=== PATIENT | female | born 1985 | race Caucasian/White ===

== ENCOUNTER 2020-06-09 10:28 | Outpatient (CLI) | payer MEDICARE, OTHER ==
[2020-06-09 15:38] VITALS: BP 123/75; PULSE 79; RESP 18; TEMP 98.2
--- NOTE | 2020-06-09 17:05 | P.MSEPDOC ---
Presenting Problems - Arrival Data Date of Arrival on Unit: 06/09/20 Time of Arrival on Unit: 10:35 Mode of Transport: Wheelchair - Complaint OB-Reason for Admission/Chief Complaint: Headache, Elevated Blood Pressure Comment: pt here complaining of elevated b/p and headache since this am. has a hx of a. brain anuerysm and polysistic kidney disease, sees a high risk doctor at [facility], planning a c/s on 06/20/20 Medical History - Information : 4 Para: 3 Number of Living Children: 3 - Gestational Age Gestational Age by KENDAL (wks/days): 35 Weeks and 3 Days Review of Systems - Review of Systems Constitutional: No problems Breast: No problems ENT: No problems Cardiovascular: No problems Respiratory: No problems Gastrointestinal: No problems Genitourinary: No problems Musculoskeletal: No problems Neurological: No problems Skin: No problems Vital Signs - Temperature Temperature: 98.2 F Temperature Source: Oral - Pulse Pulse Oximetery Pulse Rate: 79 Pulse Assessment Method: Pulse Oximetry - Respirations Respiratory Rate: 18 Oxygen Delivery Method: Room Air O2 Sat by Pulse Oximetry: 99 - Blood Pressure Right Arm Blood Pressure: 123/75 Blood Pressure Mean: 91 Blood Pressure Source: Automatic Cuff Medical Screen Scoring (Pre) - Cervical Exam Dilation: 0 cm = 0 Membranes: Intact - Uterine Contractions Frequency: N/A - Maternal Vital Signs Maternal Temperature: N/A Maternal Blood Pressure: N/A Signs of Preeclampsia: N/A Maternal Respirations: N/A - Maternal Trauma Maternal Trauma: N/A - Assessment - Baby A Baseline FHR: 130 Heart Rate - NICHD Category: Category I (Normal) = 0 NST: Reactive - Total Score - Baby A Total Score - Baby A: 0 - Total Score - Baby B Total Score - Baby B: 0 - Total Score - Baby C Total Score - Baby C: 0 - Level of Risk - Baby A Level of Risk - Baby A: Low (0-5) - Level of Risk - Baby B Level of Risk - Baby B: Low (0-5) - Level of Risk - Baby C Level of Risk - Baby C: Low (0-5) Physician Notification (Pre) - Physician Notified Physician Notified Date: 06/09/20 Physician Notified Time: 11:15 New Order Received: Yes Disposition - Disposition OB Disposition: Discharge to home, Written follow up instructions reviewed Discharge Date: 06/09/20 Discharge Time: 11:35 I agree with the RN Medical Screening Exam: Yes Case reviewed; plan agreed upon as documented in EMR&OBIX.: Yes Diagnosis: HEADACHE, UNSPECIFIED
== END 2020-06-09 11:35 | disposition home or self-care (01) ==
LOC: FBPOP 10:28
PROVIDERS: ATTEND Obstetrics & Gynecology
DX: O26.893 Other specified pregnancy related conditions, third trimester (principal); R51.9 Headache, unspecified; Z3A.35 35 weeks gestation of pregnancy
CPT/HCPCS: 59025; G0463; 99215

== ENCOUNTER 2022-01-17 15:13 | Observation (INO) | payer MEDICARE, OTHER ==
[2022-01-17] MEDS ORDERED: PANTOPRAZOLE 40 MG/10 ML VIAL IVP STA (16:04)
[2022-01-17 16:30] LABS: HCT 35.3 % (34.0-46.0); HGB 11.3 gm/dL (11.4-16.0); MCH 25.1 pg (25.0-35.0); MCHC 32.1 g/dL (31.0-37.0); MCV 78.2 fL (80.0-100.0); Mean Platelet Volume 7.8; Platelet Count 251 k/uL (150-450); RBC 4.51 m/uL (3.80-5.40); RDW 16.1 % (11.5-15.5); WBC 9.9 k/uL (3.8-10.6)
[2022-01-17 16:31] LABS: Anisocytosis Slight; Basophils % (A) 0 %; Eosinophils # (A) 0.3 k/uL (0-0.7); Eosinophils % (A) 3 %; Hypochromasia Moderate; Lymphocytes # (A) 1.9 k/uL (1.0-4.8); Lymphocytes % (A) 19 %; Microcytosis Slight; Monocytes # (A) 0.5 k/uL (0-1.0); Monocytes % (A) 5 %; Neutrophils % (A) 71 %
[2022-01-17 16:44] LABS: Albumin 4.4 g/dL (3.5-5.0); Calcium 8.9 mg/dL (8.4-10.2); Total Bilirubin 0.2 mg/dL (0.2-1.3); Total Protein 6.9 g/dL (6.3-8.2)
[2022-01-17 17:01] LABS: INR 0.9 (<1.2); Partial Thromboplastin Time 23.2 sec (22.0-30.0); Prothrombin Time 9.9 sec (9.0-12.0)
[2022-01-17 17:04] LABS: Potassium 4.2 mmol/L (3.5-5.1)
--- NOTE | 2022-01-17 19:56 | ED ---
GI Bleed HPI - General Chief complaint: GI Bleed Stated complaint: Abd pain Time Seen by Provider: 01/17/22 15:42 Source: patient Mode of arrival: ambulatory Limitations: no limitations - History of Present Illness Initial comments: This patient is a 36-year-old woman who presents with complaint that she has passed some bright red material bowel movements going back to Friday morning. She states she has had a total of of these bowel movements. The patient does bring pictures of one of these bowel movements. She states that there is no abdominal pain, but she does get little bit of intermittent abdominal cramping. No perianal pain . She has not noted symptoms of anemia. No chest pain, dyspnea, palpitations, lightheadedness or syncope area MD complaint: gross hematochezia Onset/Timin -: days(s) Quality: painless Consistency: intermittent Improves with: none Worsens with: none Associated Symptoms: denies other symptoms - Related Data Home Medications Medication Instructions Recorded Confirmed Dextroamphetamine/Amphetamine 20 mg PO TID 01/17/22 01/17/22 [Adderall 20 mg Tablet] lisinopriL [Zestril] 20 mg PO DAILY 01/17/22 01/17/22 Previous Rx's Medication Instructions Recorded Acetaminophen Tab [Tylenol] 650 mg PO Q6HR PRN tab 01/18/22 Allergies Allergy/AdvReac Type Severity Reaction Status Date / Time No Known Allergies Allergy Verified 01/17/22 20:18 Review of Systems ROS Statement: Those systems with pertinent positive or pertinent negative responses have been documented in the HPI. ROS Other: All systems not noted in ROS Statement are negative. Constitutional: Denies: fever, chills, weakness Respiratory: Denies: cough, dyspnea Cardiovascular: Denies: chest pain, palpitations, edema Gastrointestinal: Reports: hematochezia. Denies: abdominal pain, nausea, vomiting, diarrhea, constipation, melena Genitourinary: Denies: dysuria, hematuria Musculoskeletal: Denies: back pain Skin: Denies: rash Neurological: Denies: headache, weakness Past Medical History Additional Past Medical History / Comment(s): polysystic kidney brain aneursym History of Any Multi-Drug Resistant Organisms: None Reported Past Surgical History: Section Additional Past Surgical History / Comment(s): aneursym stent and coil. Past Psychological History: No Psychological Hx Reported Smoking Status: Former smoker - Past Family History Father Family Medical History: Hypertension General Exam Limitations: no limitations General appearance: alert, in no apparent distress Head exam: Present: atraumatic, normocephalic Eye exam: Present: normal appearance. Absent: scleral icterus, conjunctival injection Neck exam: Present: normal inspection Respiratory exam: Present: normal lung sounds bilaterally. Absent: respiratory distress, wheezes, rales, rhonchi, stridor Cardiovascular Exam: Present: regular rate, normal rhythm, normal heart sounds. Absent: systolic murmur, diastolic murmur, rubs, gallop GI/Abdominal exam: Present: soft. Absent: distended, tenderness, guarding, rebound, rigid, mass Rectal exam: Present: normal inspection, heme (+) stool, tenderness. Absent: hemorrhoids, mass Extremities exam: Present: normal inspection, normal capillary refill. Absent: pedal edema, calf tenderness Back exam: Present: normal inspection Neurological exam: Present: alert Skin exam: Present: warm, dry, intact, normal color. Absent: rash Course Vital Signs 01/17/22 01/17/22 15:21 21:31 Temperature 98.1 F Pulse Rate 86 74 Respiratory 16 16 Rate Blood Pressure 133/83 119/81 O2 Sat by Pulse 100 100 Oximetry Medical Decision Making - Lab Data Result diagrams: 01/18/22 05:13 01/18/22 05:13 Lab Results 01/17/22 01/17/22 01/17/22 Range/Units 16:15 16:19 16:19 WBC 9.9 (3.8-10.6) k/uL RBC 4.51 (3.80-5.40) m/uL Hgb 11.3 L (11.4-16.0) gm/dL Hct 35.3 (34.0-46.0) % MCV 78.2 L (80.0-100.0) fL MCH 25.1 (25.0-35.0) pg MCHC 32.1 (31.0-37.0) g/dL RDW 16.1 H (11.5-15.5) % Plt Count 251 (150-450) k/uL MPV 7.8 Neutrophils % 71 % Lymphocytes % 19 % Monocytes % 5 % Eosinophils % 3 % Basophils % 0 % Neutrophils # 7.0 (1.3-7.7) k/uL Lymphocytes # 1.9 (1.0-4.8) k/uL Monocytes # 0.5 (0-1.0) k/uL Eosinophils # 0.3 (0-0.7) k/uL Basophils # 0.0 (0-0.2) k/uL Hypochromasia Moderate Anisocytosis Slight Microcytosis Slight PT 9.9 (9.0-12.0) sec INR 0.9 (<1.2) APTT 23.2 (22.0-30.0) sec Sodium (137-145) mmol/L Potassium (3.5-5.1) mmol/L Chloride (98-107) mmol/L Carbon Dioxide (22-30) mmol/L Anion Gap mmol/L BUN (7-17) mg/dL Creatinine (0.52-1.04) mg/dL Est GFR (CKD-EPI)AfAm (>60 ml/min/1.73 sqM) Est GFR (CKD-EPI)NonAf (>60 ml/min/1.73 sqM) Glucose (74-99) mg/dL Plasma Lactic Acid Checo (0.7-2.0) mmol/L Calcium (8.4-10.2) mg/dL Total Bilirubin (0.2-1.3) mg/dL AST (14-36) U/L ALT (4-34) U/L Alkaline Phosphatase (38-126) U/L Troponin I (0.000-0.034) ng/mL Total Protein (6.3-8.2) g/dL Albumin (3.5-5.0) g/dL Stool Occult Blood (Negative) Blood Type B Positive Blood Type Confirm Blood Type Recheck No Previous Record Bld Type Recheck Status CABO Indicated Antibody Screen NEGATIVE Spec Expiration Date 01/20/2022 - 231401/17/22 01/17/22 01/17/22 Range/Units 16:19 16:19 16:19 WBC (3.8-10.6) k/uL RBC (3.80-5.40) m/uL Hgb (11.4-16.0) gm/dL Hct (34.0-46.0) % MCV (80.0-100.0) fL MCH (25.0-35.0) pg MCHC (31.0-37.0) g/dL RDW (11.5-15.5) % Plt Count (150-450) k/uL MPV Neutrophils % % Lymphocytes % % Monocytes % % Eosinophils % % Basophils % % Neutrophils # (1.3-7.7) k/uL Lymphocytes # (1.0-4.8) k/uL Monocytes # (0-1.0) k/uL Eosinophils # (0-0.7) k/uL Basophils # (0-0.2) k/uL Hypochromasia Anisocytosis Microcytosis PT (9.0-12.0) sec INR (<1.2) APTT (22.0-30.0) sec Sodium 140 (137-145) mmol/L Potassium 4.2 (3.5-5.1) mmol/L Chloride 105 (98-107) mmol/L Carbon Dioxide 24 (22-30) mmol/L Anion Gap 11 mmol/L BUN 25 H (7-17) mg/dL Creatinine 1.53 H (0.52-1.04) mg/dL Est GFR (CKD-EPI)AfAm 51 (>60 ml/min/1.73 sqM) Est GFR (CKD-EPI)NonAf 44 (>60 ml/min/1.73 sqM) Glucose 68 L (74-99) mg/dL Plasma Lactic Acid Checo 1.0 (0.7-2.0) mmol/L Calcium 8.9 (8.4-10.2) mg/dL Total Bilirubin 0.2 (0.2-1.3) mg/dL AST 18 (14-36) U/L ALT 13 (4-34) U/L Alkaline Phosphatase 58 (38-126) U/L Troponin I <0.012 (0.000-0.034) ng/mL Total Protein 6.9 (6.3-8.2) g/dL Albumin 4.4 (3.5-5.0) g/dL Stool Occult Blood (Negative) Blood Type Blood Type Confirm Blood Type Recheck Bld Type Recheck Status Antibody Screen Spec Expiration Date 01/17/22 01/17/22 Range/Units 16:19 16:20 WBC (3.8-10.6) k/uL RBC (3.80-5.40) m/uL Hgb (11.4-16.0) gm/dL Hct (34.0-46.0) % MCV (80.0-100.0) fL MCH (25.0-35.0) pg MCHC (31.0-37.0) g/dL RDW (11.5-15.5) % Plt Count (150-450) k/uL MPV Neutrophils % % Lymphocytes % % Monocytes % % Eosinophils % % Basophils % % Neutrophils # (1.3-7.7) k/uL Lymphocytes # (1.0-4.8) k/uL Monocytes # (0-1.0) k/uL Eosinophils # (0-0.7) k/uL Basophils # (0-0.2) k/uL Hypochromasia Anisocytosis Microcytosis PT (9.0-12.0) sec INR (<1.2) APTT (22.0-30.0) sec Sodium (137-145) mmol/L Potassium (3.5-5.1) mmol/L Chloride (98-107) mmol/L Carbon Dioxide (22-30) mmol/L Anion Gap mmol/L BUN (7-17) mg/dL Creatinine (0.52-1.04) mg/dL Est GFR (CKD-EPI)AfAm (>60 ml/min/1.73 sqM) Est GFR (CKD-EPI)NonAf (>60 ml/min/1.73 sqM) Glucose (74-99) mg/dL Plasma Lactic Acid Checo (0.7-2.0) mmol/L Calcium (8.4-10.2) mg/dL Total Bilirubin (0.2-1.3) mg/dL AST (14-36) U/L ALT (4-34) U/L Alkaline Phosphatase (38-126) U/L Troponin I (0.000-0.034) ng/mL Total Protein (6.3-8.2) g/dL Albumin (3.5-5.0) g/dL Stool Occult Blood Positive H (Negative) Blood Type Blood Type Confirm B Positive Blood Type Recheck Bld Type Recheck Status Antibody Screen Spec Expiration Date Disposition Clinical Impression: GI bleeding Disposition: ADMITTED IP TO THIS [facility] Condition: Stable
[2022-01-17] MEDS ORDERED: NALOXONE 0.4 MG/ML 1 ML VIAL IV PRN (19:57)
[2022-01-17] MEDS ORDERED: ONDANSETRON 4 MG/2 ML VIAL IVP PRN (19:57)
[2022-01-17] MEDS ORDERED: ACETAMINOPHEN TAB 325 MG TAB PO PRN (19:57)
[2022-01-17] MEDS ORDERED: SODIUM CHLORIDE 0.9% 1,000 ML IV SCH (20:00)
[2022-01-17] MEDS ORDERED: LABETALOL 200 MG TAB PO SCH (22:00)
[2022-01-17 22:59] LABS: Anisocytosis Slight; HCT 34.2 % (34.0-46.0); HGB 10.9 gm/dL (11.4-16.0); Hypochromasia Moderate; MCV 78.2 fL (80.0-100.0); Mean Platelet Volume 9.1; Microcytosis Slight; Platelet Count 263 k/uL (150-450); RBC 4.37 m/uL (3.80-5.40); RDW 16.3 % (11.5-15.5); WBC 8.8 k/uL (3.8-10.6)
--- NOTE | 2022-01-17 23:59 | P.HPIM ---
History of Present Illness H&P Date: 01/17/22 The patient is a 36-year-old female with no known PMH who presents to the emergency room with complaints of bright red blood in stools. The patient reports that her symptoms started roughly 5 days ago when she initially noticed small amounts of mucousy bright red blood in her stools which subsequently worsened over the past 48 hours. She reports mild aching diffuse abdominal discomfort over the past 1 week. Denies black tarry stools, diarrhea, nausea, or vomiting. Denies fever, chills. Denies any prior history of such symptoms. Denies weight loss. Reports no changes in her appetite and no association between food and her pain. Reports that she continues to be able to tolerate a regular diet. At time of interview, she reported that her abdominal pain was a 2 out of 10. Denies any history of irritable bowel syndrome or inflammatory bowel disease. Denied history of any other autoimmune illnesses. Patient denied experiencing joint pain, visual disturbances, chest pain, shortness of breath. Laboratory evaluation in the emergency room was remarkable for hemoglobin of 11.3, BUN 25, creatinine 1.53, glucose 68, lactic acid 1.0, with a fecal occult blood positive. The patient did have photographs of the contents of her stool. Moderate amounts of blood with clots and mucous were visualized in the photographs. Patient denied painful defecation or blood upon wiping. Review of systems: Pertinent positives and negatives as discussed in HPI, a complete review of systems was performed and all other systems are negative. Physical examination: General: non toxic, no distress, appears at stated age, overweight Derm: no unusual rashes/lesions, warm Head: atraumatic, normocephalic, symmetric Eyes: EOMI, no lid lag, anicteric sclera, pupils equal round reactive to light ENT: Nose and ears atraumatic Neck: No cervical lymphadenopathy, trachea midline, supple Mouth: no lip lesion, mucus membranes moist Cardiovascular: S1S2 reg, no murmur, positive dorsalis pedis pulse bilateral, no edema Lungs: CTA bilateral, no rhonchi, no rales, no accessory muscle use Abdominal: soft, mild diffuse abdominal tenderness, no guarding Ext: muscle strength 5 out of 5 in all 4 extremities grossly, no gross muscle atrophy, no contractures, Neuro: CN II-XI grossly intact, no gross focal neuro deficits Psych: Alert, oriented, appropriate affect Assessment/plan Diffuse mild abdominal pain with hematochezia with mucus, suspect inflammatory versus infectious etiology -Surgery consulted for possible colonoscopy -Check inflammatory markers -Protonix -IV fluids -Clear liquid diet Elevated creatinine, no baseline available for comparison -Monitor for now -IV fluids Hypoglycemia -Monitor for now DVT prophylaxis -IPCDs The patient is admitted with an anticipated less than 2 midnight stay for evaluation of blood in stools CODE STATUS: Full Code Discussed with: Patient Anticipated discharge date: in am Anticipated discharge place: Home Past Medical History Additional Past Medical History / Comment(s): polysystic kidney brain aneursym History of Any Multi-Drug Resistant Organisms: None Reported Past Surgical History: Section Additional Past Surgical History / Comment(s): aneursym stent and coil. Past Psychological History: No Psychological Hx Reported Smoking Status: Former smoker - Past Family History Father Family Medical History: Hypertension Medications and Allergies Home Medications Medication Instructions Recorded Confirmed Type Dextroamphetamine/Amphetamine 20 mg PO TID 01/17/22 01/17/22 History [Adderall 20 mg Tablet] lisinopriL [Zestril] 20 mg PO DAILY 01/17/22 01/17/22 History Allergies Allergy/AdvReac Type Severity Reaction Status Date / Time No Known Allergies Allergy Verified 01/17/22 20:18 Physical Exam Vitals: Vital Signs Temp Pulse Resp BP Pulse Ox 01/17/22 21:31 74 16 119/81 100 01/17/22 15:21 98.1 F 86 16 133/83 100 Intake and Output 01/17/22 01/17/22 01/18/22 14:59 22:59 06:59 Other: Weight 86.183 kg Results CBC & Chem 7: 01/17/22 22:19 01/17/22 16:19 Labs: Abnormal Lab Results - Last 24 Hours (Table) 01/17/22 01/17/22 01/17/22 Range/Units 16:19 16:19 16:19 Hgb 11.3 L (11.4-16.0) gm/dL MCV 78.2 L (80.0-100.0) fL RDW 16.1 H (11.5-15.5) % BUN 25 H (7-17) mg/dL Creatinine 1.53 H (0.52-1.04) mg/dL Glucose 68 L (74-99) mg/dL Stool Occult Blood Positive H (Negative) 01/17/22 Range/Units 22:19 Hgb 10.9 L (11.4-16.0) gm/dL MCV 78.2 L (80.0-100.0) fL RDW 16.3 H (11.5-15.5) % BUN (7-17) mg/dL Creatinine (0.52-1.04) mg/dL Glucose (74-99) mg/dL Stool Occult Blood (Negative)
[2022-01-18 03:05] LABS: Glucose,Whole Blood 103 mg/dL (70-110)
[2022-01-18 06:13] LABS: ALT 11 U/L (4-34); AST 16 U/L (14-36); African American GFR (CKD) 55 (>60 ml/min/1.73 sqM); Albumin 3.9 g/dL (3.5-5.0); Albumin/Globulin Ratio 1.5; Alkaline Phosphatase 53 U/L (38-126); Anion Gap 9 mmol/L; Blood Urea Nitrogen 21 mg/dL (7-17); C Reactive Protein <0.5 mg/dL (<1.0); Calcium 8.7 mg/dL (8.4-10.2); Carbon Dioxide 22 mmol/L (22-30); Chloride 106 mmol/L (98-107); Globulin 2.6 g/dL; Glucose 90 mg/dL (74-99); Non-African American GFR(CKD) 48 (>60 ml/min/1.73 sqM); Potassium 4.5 mmol/L (3.5-5.1); Sodium 137 mmol/L (137-145); Total Bilirubin 0.4 mg/dL (0.2-1.3); Total Protein 6.5 g/dL (6.3-8.2)
[2022-01-18 08:01] LABS: Glucose,Whole Blood 103 mg/dL (70-110)
[2022-01-18 08:29] VITALS: BP 147/79; PULSE 68; RESP 16; TEMP 98.5
[2022-01-18 08:41] LABS: HCT 34.3 % (37.2-46.3); HGB 10.3 g/dL (12.0-15.0); MCV 76.7 fL (80.0-97.0); Mean Platelet Volume 11.2 fL (9.5-12.2); NRBC Per 100 WBC 0 /100 WBCS (0.0-0.0); Platelet Count 281 X 10*3/uL (140-440); RBC 4.47 X 10*6/uL (4.10-5.20); RDW 17.6 % (11.5-14.5)
[2022-01-18] MEDS ORDERED: PANTOPRAZOLE 40 MG/10 ML VIAL IV SCH (09:00)
[2022-01-18 09:15] LABS: % Iron Saturation 5.82 (12.00-45.00); Ferritin 8.8 ng/mL (10.0-291.0); Iron 23 ug/dL (50-170); Total Iron Binding Capacity 386 ug/dL (228-460)
[2022-01-18 09:54] LABS: Erythrocyte Sedimentation Rate 16 mm/Hr (0-20)
--- NOTE | 2022-01-18 10:50 | P.GSCN ---
History of Present Illness Consult date: 01/18/22 History of present illness: CHIEF COMPLAINT: GI bleed HISTORY OF PRESENT ILLNESS: This is a 36-year-old female presented to the hospital with 2 day history of passing blood per rectum. She reports that she had 4-5 bloody bowel movements. There was blood clots present. She was passing blood from the rectum without stool. The last time she passed any blood was yesterday morning. She reports having abdominal pain across the abdomen that wrapped around into her back. She was nauseated. Patient reports improvement in her abdominal pain. She is currently tolerating clear liquids. She's never had GI bleed previously. She's never had a colonoscopy. And denies any family history of colon cancer. She denies being on any blood thinners. Denies any history of diverticulosis. Hemoglobin on admission 11.3 now down to 10.3. PAST MEDICAL HISTORY: Polycystic kidney disease, brain aneurysm with stent and coil PAST SURGICAL HISTORY: See below MEDICATIONS: See below ALLERGIES: See below SOCIAL HISTORY: No illicit drug use. REVIEW OF SYSTEMS: CONSTITUTIONAL: Denies fever or chills. HEENT: Denies blurred vision, vision changes, or eye pain. Denies hemoptysis CARDIOVASCULAR: Denies chest pain or pressure. RESPIRATORY: No shortness of breath. GASTROINTESTINAL: See HPI for pertinent findings HEMATOLOGIC: Denies bleeding disorders. GENITOURINARY: Denies any blood in urine or increased urinary frequency. SKIN: Denies pruitis. Denies rash. PHYSICAL EXAM: VITAL SIGNS: Reviewed GENERAL: Well-developed in no acute distress. HEENT: No sclera icterus. Extraocular movements grossly intact. Moist buccal mucosa. Head is atraumatic, normocephalic. No nasal drainage. ABDOMEN: Soft. Nondistended. Nontender NEUROLOGIC: Alert and oriented. Cranial nerves II through XII grossly intact. LABORATORY DATA: WBC 8.10 Hgb 10.3 platelets 281 Sodium 137 potassium 4.5 BUN 21 creatinine 1.43 Iron level low at 23 B12 level normal 291 Stool for occult blood positive IMAGING: ASSESSMENT: 1. Crampy Abdominal pain with acute GI bleed 2. Acute blood loss anemia 3. Iron deficiency PLAN: -Continue clear liquid diet -Continue monitoring for any signs or symptoms of bleeding -Continue supportive care -Continue IV fluids -Further recommendations forthcoming per surgeon Physician Mechanical Project Engineer note has been reviewed by physician. Signing provider agrees with the documented findings, assessment, and plan of care. Past Medical History Additional Past Medical History / Comment(s): polysystic kidney brain aneursym History of Any Multi-Drug Resistant Organisms: None Reported Past Surgical History: Section Additional Past Surgical History / Comment(s): aneursym stent and coil. Past Psychological History: No Psychological Hx Reported Smoking Status: Former smoker - Past Family History Father Family Medical History: Hypertension Medications and Allergies Home Medications Medication Instructions Recorded Confirmed Type Dextroamphetamine/Amphetamine 20 mg PO TID 01/17/22 01/17/22 History [Adderall 20 mg Tablet] lisinopriL [Zestril] 20 mg PO DAILY 01/17/22 01/17/22 History Allergies Allergy/AdvReac Type Severity Reaction Status Date / Time No Known Allergies Allergy Verified 01/17/22 20:18 Surgical - Exam Vital Signs Temp Pulse Resp BP Pulse Ox 98.1 F 86 16 133/83 100 01/17/22 15:21 01/17/22 15:21 01/17/22 15:21 01/17/22 15:21 01/17/22 15:21 Results - Labs 01/18/22 05:13 01/18/22 05:13 Abnormal Lab Results - Last 24 Hours (Table) 01/17/22 01/17/22 01/17/22 Range/Units 16:19 16:19 16:19 Hgb 11.3 L (11.4-16.0) gm/dL Hct (37.2-46.3) % MCV 78.2 L (80.0-100.0) fL MCH (27.0-32.0) pg MCHC (32.0-37.0) g/dL RDW 16.1 H (11.5-15.5) % BUN 25 H (7-17) mg/dL Creatinine 1.53 H (0.52-1.04) mg/dL Glucose 68 L (74-99) mg/dL Iron (50-170) ug/dL % Saturation (12.00-45.00) Ferritin (10.0-291.0) ng/mL Stool Occult Blood Positive H (Negative) 01/17/22 01/18/22 01/18/22 Range/Units 22:19 05:13 05:13 Hgb 10.9 L 10.3 L (11.4-16.0) gm/dL Hct 34.3 L (37.2-46.3) % MCV 78.2 L 76.7 L (80.0-100.0) fL MCH 23.0 L (27.0-32.0) pg MCHC 30.0 L (32.0-37.0) g/dL RDW 16.3 H 17.6 H (11.5-15.5) % BUN 21 H (7-17) mg/dL Creatinine 1.43 H (0.52-1.04) mg/dL Glucose (74-99) mg/dL Iron 23 L (50-170) ug/dL % Saturation 5.82 L (12.00-45.00) Ferritin 8.8 L (10.0-291.0) ng/mL Stool Occult Blood (Negative) Diabetes panel 01/17/22 01/18/22 Range/Units 16:19 05:13 Sodium 140 137 (137-145) mmol/L Potassium 4.2 4.5 (3.5-5.1) mmol/L Chloride 105 106 (98-107) mmol/L Carbon Dioxide 24 22 (22-30) mmol/L BUN 25 H 21 H (7-17) mg/dL Creatinine 1.53 H 1.43 H (0.52-1.04) mg/dL Glucose 68 L 90 (74-99) mg/dL Calcium 8.9 8.7 (8.4-10.2) mg/dL AST 18 16 (14-36) U/L ALT 13 11 (4-34) U/L Alkaline Phosphatase 58 53 (38-126) U/L Total Protein 6.9 6.5 (6.3-8.2) g/dL Albumin 4.4 3.9 (3.5-5.0) g/dL Calcium panel 01/17/22 01/18/22 Range/Units 16:19 05:13 Calcium 8.9 8.7 (8.4-10.2) mg/dL Albumin 4.4 3.9 (3.5-5.0) g/dL Pituitary panel 01/17/22 01/18/22 Range/Units 16:19 05:13 Sodium 140 137 (137-145) mmol/L Potassium 4.2 4.5 (3.5-5.1) mmol/L Chloride 105 106 (98-107) mmol/L Carbon Dioxide 24 22 (22-30) mmol/L BUN 25 H 21 H (7-17) mg/dL Creatinine 1.53 H 1.43 H (0.52-1.04) mg/dL Glucose 68 L 90 (74-99) mg/dL Calcium 8.9 8.7 (8.4-10.2) mg/dL Adrenal panel 01/17/22 01/18/22 Range/Units 16:19 05:13 Sodium 140 137 (137-145) mmol/L Potassium 4.2 4.5 (3.5-5.1) mmol/L Chloride 105 106 (98-107) mmol/L Carbon Dioxide 24 22 (22-30) mmol/L BUN 25 H 21 H (7-17) mg/dL Creatinine 1.53 H 1.43 H (0.52-1.04) mg/dL Glucose 68 L 90 (74-99) mg/dL Calcium 8.9 8.7 (8.4-10.2) mg/dL Total Bilirubin 0.2 0.4 (0.2-1.3) mg/dL AST 18 16 (14-36) U/L ALT 13 11 (4-34) U/L Alkaline Phosphatase 58 53 (38-126) U/L Total Protein 6.9 6.5 (6.3-8.2) g/dL Albumin 4.4 3.9 (3.5-5.0) g/dL
--- NOTE | 2022-01-18 11:13 | P.DS ---
Providers Date of admission: 01/17/22 19:57 Expected date of discharge: 01/18/22 Attending physician: Reji Kearney MD Consults: 01/17/22 19:57 Consult Physician Routine Consulting Provider: Chun Argueta Consult Reason/Comments: GI Bleeding Do you want consulting provider notified?: Already Contacted Primary care physician: [facility] Course: The patient is a 36-year-old female with no known PMH who presents to the emergency room with complaints of bright red blood in stools. The patient reports that her symptoms started roughly 5 days ago when she initially noticed small amounts of mucousy bright red blood in her stools which subsequently worsened over the past 48 hours. She reports mild aching diffuse abdominal discomfort over the past 1 week. Denies black tarry stools, diarrhea, nausea, or vomiting. Denies fever, chills. Denies any prior history of such symptoms. Denies weight loss. Reports no changes in her appetite and no association betw een food and her pain. Reports that she continues to be able to tolerate a regular diet. At time of interview, she reported that her abdominal pain was a 2 out of 10. Denies any history of irritable bowel syndrome or inflammatory bowel disease. Denied history of any other autoimmune illnesses. Patient denied experiencing joint pain, visual disturbances, chest pain, shortness of breath. Laboratory evaluation in the emergency room was remarkable for hemoglobin of 11.3, BUN 25, creatinine 1.53, glucose 68, lactic acid 1.0, with a fecal occult blood positive. The patient did have photographs of the contents of her stool. Moderate amounts of blood with clots and mucous were visualized in the photographs. Patient denied painful defecation or blood upon wiping. Her hemoglobin remained stable and was 10.3 at the time of discharge. ESR was negative. Acute kidney injury was improving. Patient was seen and examined. No acute events overnight. Patient reports eating a chicken larry sandwich at [facility] in [place]. [place] had lettuce and tomato. Symptoms started shortly after eating that sandwich. She currently denies any abdominal pain. No more bowel movements. Symtoms completley resolved. Patient is advised to follow up with her PCP within 1-2 days of discharge. She is advised to come back if her symtoms worsen. General: non toxic, no distress, appears at stated age, overweight Derm: no unusual rashes/lesions, warm Head: atraumatic, normocephalic, symmetric Eyes: EOMI, no lid lag, anicteric sclera ENT: Nose and ears atraumatic Neck: No cervical lymphadenopathy, trachea midline, supple Mouth: no lip lesion, mucus membranes moist Cardiovascular: S1S2 reg, no murmur, no edema Lungs: CTA bilateral, no rhonchi, no rales, no accessory muscle use Abdominal: soft, non tender to palpation, no guarding Ext: muscle strength 5 out of 5 in all 4 extremities grossly, no gross muscle atrophy, no contractures, Neuro: no gross focal neuro deficits Psych: Alert, oriented, appropriate affect Assessment/plan #Diffuse mild abdominal pain with hematochezia with mucus, suspect infectious etiology #Elevated creatinine, no baseline available for comparison #Hypoglycemia Patient Condition at Discharge: Stable Plan - Discharge Summary New Discharge Prescriptions: New Acetaminophen Tab [Tylenol] 650 mg PO Q6HR PRN tab PRN Reason: Mild Pain Or Fever > 100.5 Continue lisinopriL [Zestril] 20 mg PO DAILY Dextroamphetamine/Amphetamine [Adderall 20 mg Tablet] 20 mg PO TID Discharge Medication List Dextroamphetamine/Amphetamine [Adderall 20 mg Tablet] 20 mg PO TID 01/17/22 [History] lisinopriL [Zestril] 20 mg PO DAILY 01/17/22 [History] Acetaminophen Tab [Tylenol] 650 mg PO Q6HR PRN tab 01/18/22 [Rx] Follow up Appointment(s)/Referral(s): Rafael Humphrey DO [Primary Care Provider] - 1-2 days (PLEASE CALL AND SCHEDULE APPOINTMENT.) Patient Instructions/Handouts: Rectal Bleeding (DC), Acute Abdominal Pain (DC) Activity/Diet/Wound Care/Special Instructions: Diet: CLD and advance as tolerated. FU with PCP within 1-2 days of DC. Come back to the ED for worsening abdominal pain, N/V, fever > 100.4F not relieved with tylenol Discharge Disposition: HOME SELF-CARE
== END 2022-01-18 11:24 | disposition home or self-care (01) ==
LOC: EC 15:13 → 6NMEDSUR 19:57
PROVIDERS: ADMIT Internal Medicine; ATTEND Internal Medicine
DX: R10.9 Unspecified abdominal pain (principal); N17.9 Acute kidney failure, unspecified; D62 Acute posthemorrhagic anemia; E61.1 Iron deficiency; Q61.3 Polycystic kidney, unspecified; E16.2 Hypoglycemia, unspecified; Z87.891 Personal history of nicotine dependence; Z82.49 Family history of ischemic heart disease and other diseases of the circulatory system; Z79.899 Other long term (current) drug therapy
CPT/HCPCS: 96376; 96374; 99284; 36415; 86900; 86901; 80053 ×2; 85652; 82607; 82728; 83540; 83550; 83605; 84484; 85025; 85027 ×2; 85610; 85730; 86850; 86140; 82272; 83993; G0378 ×2; C9113 ×2